=== PATIENT | female | born 1990 | race Caucasian/White ===

== ENCOUNTER 2021-04-10 13:28 | Emergency (ER) | payer OTHER ==
[~2021-04-10] VITALS: Ht 157.5 cm; Wt 55.8 kg
[2021-04-10 13:29] VITALS: BP 110/68
== END 2021-04-10 15:17 | disposition left against medical advice (07) ==
LOC: M ED 13:28
DX: Z53.21 Procedure and treatment not carried out due to patient leaving prior to being seen by health care provider (principal)